=== PATIENT | female | born 1985 | race Two or more races ===

== ENCOUNTER → 2024-11-05 | Outpatient (CLI) | payer BC, SELFPAY ==
--- NOTE | 2024-11-05 16:43 | XR_ITS ---
Examination: Duplex scan of the lower extremity, unilateral right complete Date and time of exam: November 05, 2024 1652 hours INDICATIONS: Right leg pain beginning 4 months ago Technique: Duplex scan of the extremity veins using B-mode/grayscale imaging and Doppler spectral analysis and color flow Attention is directed to internal echogenicity, compression and augmentation involving these veins, color flow assessment, spectral analysis Findings: Major deep venous structures in the extremity demonstrate normal course and caliber. There is no evidence of deep vein thrombosis. Normal color flow and spectral analysis Impression: Negative for DVT..
--- NOTE | 2024-11-05 16:43 | XR_ITS ---
Examination: Soft tissue knee, right TECHNIQUE: Ricketts scale sonographic images soft tissue right knee Date and time: November 05, 2024 1648 hours INDICATIONS: Palpable lump in the right knee with pain beginning 4 months ago FINDINGS: 2.4 x 2.6 x 1.5 cm cystic structure with internal echogenicity in the inner right knee at the area of concern, differential would include popliteal cyst IMPRESSION: 2.4 x 2.6 x 1.5 cm cystic structure at the area of concern, differential would include popliteal cyst, clinical correlation advised As clinically warranted, consider MRI knee without contrast follow-up
== END | disposition home or self-care (01) ==
PROVIDERS: PCP Family Medicine; Referring Provider Nurse Practitioner Family; Visit Provider Nurse Practitioner Family
DX: R22.41 Localized swelling, mass and lump, right lower limb (principal); M25.561 Pain in right knee
CPT/HCPCS: 76882; 93971

== ENCOUNTER → 2024-11-06 | Outpatient (CLI) | payer BC, SELFPAY ==
--- NOTE | 2024-11-06 08:12 | XR_ITS ---
Examination: Right knee 4 views TECHNIQUE: AP oblique lateral axial right knee 4 views Date and time: November 06, 2024 0820 hours INDICATIONS: Right knee pain and lump in the posterior knee 4 months. FINDINGS: Mild narrowing medial joint space Early osteoarthritis patellofemoral joint No patellar dislocation No fracture IMPRESSION: Mild osteoarthritis
--- NOTE | 2024-11-06 08:12 | XR_ITS ---
Examination: AP bilateral knees single view TECHNIQUE: AP standing bilateral knees single view Date and time: November 06, 2024 0830 hours INDICATIONS: Right knee pain 4 months FINDINGS: Mild narrowing medial joint spaces Mild to moderate osteopenia. No fracture or dislocation MRI knee without contrast follow-up on the right would best assess for popliteal cyst as clinically warranted IMPRESSION: Mild narrowing medial joint spaces
== END | disposition home or self-care (01) ==
LOC: CDIM 08:04
PROVIDERS: PCP Family Medicine; Referring Provider Nurse Practitioner Family; Visit Provider Nurse Practitioner Family
DX: M17.11 Unilateral primary osteoarthritis, right knee (principal)
CPT/HCPCS: 73564; 73565

== ENCOUNTER → 2024-12-11 | Outpatient (CLI) | payer BC, SELFPAY ==
--- NOTE | 2024-12-11 09:30 | XR_ITS ---
Exam: MRI knee without contrast, right Date and time of exam: December 11, 2024 0932 hours INDICATIONS: Medial right-sided knee pain 8 months Technique: Multiple axial, coronal, and sagittal sections on the knee have been obtained. T2-Weighted sagittal, fat-suppressed images, TR 3,500, TE 62, T2 weighted coronal fat-saturated images, TR 3,500, TE 62 Proton density sagittal sections, TR 1800, TE 31. T-1 weighted coronal images, TR 524, TE 13.0 Findings: Medial meniscus anterior horn intact. Medial meniscus, body intact. Posterior horn medial meniscus intact. Lateral meniscus anterior horn is intact Lateral meniscus, body is intact Posterior horn lateral meniscus is intact Anterior cruciate ligament mild sprain Posterior cruciate ligament appears intact. Knee effusion is not seen, 22 mm medial cyst adjacent to the medial meniscus. Quadriceps and patellar tendons appear intact. There is no evidence of tendinosis. Inflammatory change or fracture of Hoffa's fat pad is not seen. Medial patellar facet demonstrates no thinning. Lateral patellar facet cartilage demonstrates no thinning. Trochlear cartilage demonstrates no thinning. Marrow signal adequate. Medial collateral ligament appears intact. No meniscocapsular separation is seen. Illiotibial band and fibular collateral ligament are intact. Biceps femoris tendons appear intact. Medial femoral condylar articular cartilage demonstrates no thinning. Lateral femoral condylar articular cartilage demonstratesno thinning. Tibial plateau cartilage demonstrates no thinning. Impression: 22 mm meniscus cyst adjacent to the body of the medial meniscus Meniscal cyst adjacent to the body the medial meniscus Mild attenuation/sprain anterior cruciate ligament
== END | disposition home or self-care (01) ==
LOC: SMRI 08:54
PROVIDERS: PCP Registered Nurse; Referring Provider Nurse Practitioner Family; Visit Provider Nurse Practitioner Family
DX: M23.031 Cystic meniscus, other medial meniscus, right knee (principal); S83.511A Sprain of anterior cruciate ligament of right knee, initial encounter; X58.XXXA Exposure to other specified factors, initial encounter; Y93.9 Activity, unspecified
CPT/HCPCS: 73721